=== PATIENT | female | born 1965 | race American Indian/Alaskan Native ===

== ENCOUNTER 2019-01-29 09:39 | Emergency (ER) | payer MEDICAID ==
[2019-01-29 09:49] VITALS: BP 131/84
[2019-01-29] MEDS ORDERED: TORADOL IM ONE (10:28)
--- NOTE | 2019-01-29 10:36 | Emergency Department Report ---
ED Neck Pain/Injury HPI - General Chief Complaint: Neck Pain/Injury Stated Complaint: NECK/LFT SIDE PAIN Time Seen by Provider: 01/29/19 09:57 Mode of arrival: Ambulatory Limitations: No Limitations - History of Present Illness Initial Comments: This is a 53-year-old female nontoxic, well nourished in appearance, no acute signs of distress presents to the ED with c/o of acute on chronic upper back pain. Patient stated has been having these pains intermittently for several years. Patient states that pain radiates through to his left upper extremity. Patient denies any trauma. Denies any bladder or bowel instability. Patient denies any urinary symptoms. Denies any fever, chills, nausea, vomiting, headache, stiff neck, chest pain or shortness of breath. Patient denies any numbness or tingling. Stated allergies to Ibuprofen and Dtap. Stated has received Toradol in [place] ED with no adverse affects. Past medical history includes cervical spine surgery, diabetes and hypertension. MD Complaint: neck pain -: days(s) (2) Place: home Radiation: left upper extremity Severity: mild Severity scale (0 -10): 8 Quality: aching Consistency: constant Improves With: none Worsens With: none Associated Symptoms: none. denies: headache, fever, numbness, tingling, weakness, vertigo, difficulty walking, swollen glands, difficulty swallowing, nausea, vomiting - Related Data Previous Rx's Medication Instructions Recorded Last Taken Type Acetaminophen [Acetaminophen 8 650 mg PO Q8H PRN #30 tablet.er 01/29/19 Unknown Rx Hour] Cyclobenzaprine HCl [Flexeril 5 MG 5 mg PO QHS PRN #10 tab 01/29/19 Unknown Rx TAB] Allergies Allergy/AdvReac Type Severity Reaction Status Date / Time ibuprofen Allergy Seizure Verified 01/29/19 09:47 tetanus and diphtheria Allergy Seizure Verified 01/29/19 09:47 toxoids ED Review of Systems ROS: Stated complaint: NECK/LFT SIDE PAIN Other details as noted in HPI Constitutional: denies: chills, fever Eyes: denies: eye pain, eye discharge, vision change ENT: denies: ear pain, throat pain Respiratory: denies: cough, shortness of breath, wheezing Cardiovascular: denies: chest pain, palpitations Endocrine: no symptoms reported Gastrointestinal: denies: abdominal pain, nausea, diarrhea Genitourinary: denies: urgency, dysuria, discharge Musculoskeletal: denies: back pain, joint swelling, arthralgia Skin: denies: rash, lesions Neurological: denies: headache, weakness, paresthesias Psychiatric: denies: anxiety, depression Hematological/Lymphatic: denies: easy bleeding, easy bruising ED Past Medical Hx - Past Medical History Hx Hypertension: Yes Hx Diabetes: Yes Additional medical history: HIGH CHOLESTROL - Surgical History Past Surgical History?: No - Medications Home Medications: Home Medications Medication Instructions Recorded Confirmed Last Taken Type Acetaminophen [Acetaminophen 8 650 mg PO Q8H PRN #30 tablet.er 01/29/19 Unknown Rx Hour] Cyclobenzaprine HCl [Flexeril 5 MG 5 mg PO QHS PRN #10 tab 01/29/19 Unknown Rx TAB] ED Physical Exam - General Limitations: No Limitations General appearance: alert, in no apparent distress - Head Head exam: Present: atraumatic, normocephalic - Neck Neck exam: Present: normal inspection, full ROM. Absent: tenderness, meningismus, lymphadenopathy - Extremities Exam Extremities exam: Present: normal inspection, full ROM, normal capillary refill. Absent: tenderness, joint swelling - Back Exam Back exam: Present: normal inspection, full ROM, paraspinal tenderness (left sided cervical paraspinal). Absent: tenderness, CVA tenderness (R), CVA tenderness (L), muscle spasm, vertebral tenderness, rash noted - Neurological Exam Neurological exam: Present: alert, oriented X3, normal gait - Psychiatric Psychiatric exam: Present: normal affect, normal mood - Skin Skin exam: Present: warm, dry, intact, normal color. Absent: rash ED Course Vital Signs 01/29/19 09:47 Temperature 98.4 F Pulse Rate 81 Respiratory 18 Rate Blood Pressure 131/84 [Left] O2 Sat by Pulse 100 Oximetry - Reevaluation(s) Reevaluation #1: 01/29/19 10:34 Patient is speaking in full sentences with no signs of distress noted. ED Medical Decision Making - Medical Decision Making This is a 53-year-old male that presents with cervical radiculopathy. Patient is stable was examined by me. There is no spinal tenderness. No bladder or bowel instability. Xrays of cervical spine unremarkable. Patient received Toradol 30 mg IM in the ED which stated that her symptoms has resolved and subsided. Patient is discharged with muscle relaxant and [place]. Patient was instructed not to operate any machinery while taking muscle relaxant as they cause her drowsiness. Patient was referred to Follow-up with a primary care doctor in 3-5 days or if symptoms worsen and continue return to emergency room as soon as possible. At time of discharge, the patient does not seem toxic or ill in appearance. No acute signs of distress noted. Patient agrees to discharge treatment plan of care. No further questions noted by the patient. This chart is dictated with using [employer] Dictation Program - Differential Diagnosis musle strain, fracture, radiculopathy Critical care attestation.: If time is entered above; I have spent that time in minutes in the direct care of this critically ill patient, excluding procedure time. ED Disposition Clinical Impression: Cervical radiculopathy Cervical muscle strain Qualifiers: Encounter type: initial encounter Qualified Code(s): S16.1XXA - Strain of muscle, fascia and tendon at neck level, initial encounter Disposition: TO HOME OR SELFCARE Is pt being admited?: No Does the pt Need Aspirin: No Condition: Stable Instructions: Cyclobenzaprine (By mouth), Muscle Strain (ED) Additional Instructions: Follow-up with your primary care doctor in 3-5 days or if symptoms worsen such as bladder or bowel stability, chest pain, short of breath, numbness or tingling sensation in extremities, headache, dizziness, visual changes, nausea vomiting, or abdominal pain, return back to emergency room as was possible. Take Tylenol and Flexeril as prescribed. Do not operate heavy machinery while taking Flexeril due to sedation Prescriptions: Cyclobenzaprine HCl [Flexeril 5 MG TAB] 5 mg PO QHS PRN #10 tab PRN Reason: Muscle Spasm Acetaminophen [Acetaminophen 8 Hour] 650 mg PO Q8H PRN #30 tablet.er PRN Reason: Pain , Severe (7-10) Referrals: PRIMARY CARE, [Primary Care Provider] - 3-5 Days MCKENNA ALEJANDRO MD [Staff Physician] - 3-5 Days [facility] [Outside] - 3-5 Days [facility] [Outside] - 3-5 Days Forms: Work/School Release Form(ED) Time of Disposition: 11:31
--- NOTE | 2019-01-29 11:28 | XRay Report ---
CERVICAL SPINE 3 VIEWS INDICATION / CLINICAL INFORMATION: neck pain. COMPARISON: None available. FINDINGS: VERTEBRAE: No acute fracture. No significant malalignment. Wire fusion of the C1 and C2 spinous proce sses has been previously performed, but the wires fractured. The odontoid process of C2 appears abnor venu short but with smooth superior border, possibly indicating the presence of an os odontoideum th at is not well seen on the frontal view. On the lateral view, the anterior arch of C1 is not seen in the expected position along the anterior margin of the dens. DISC SPACES / FACET JOINTS:Moderate degenerative disc disease in the mid to lower cervical spine with anterior disc osteophyte complexes but no significant listhesis. Mild disc space narrowing. PARASPINAL SOFT TISSUES:No significant abnormality. IMPRESSION: Abnormal appearance of the atlantoaxial joint with postsurgical changes, although no defi nitely acute abnormality is seen. Further evaluation with noncontrast CT scan is recommended if no pr evious imaging is readily available for comparison. Signer Name: Shawn Meyer MD Signed: 01/29/2019 11:24 AM Workstation Name: [id number]
== END 2019-01-29 12:47 | disposition home or self-care (01) ==
LOC: ED 09:39
DX: S16.1XXA Strain of muscle, fascia and tendon at neck level, initial encounter (principal); M54.12 Radiculopathy, cervical region; I10 Essential (primary) hypertension; E11.9 Type 2 diabetes mellitus without complications; E78.00 Pure hypercholesterolemia, unspecified; Z88.6 Allergy status to analgesic agent; Z88.7 Allergy status to serum and vaccine; X58.XXXA Exposure to other specified factors, initial encounter; Y93.89 Activity, other specified; Y92.89 Other specified places as the place of occurrence of the external cause; Y99.8 Other external cause status
CPT/HCPCS: 72040; 96372; 99283; J1885

== ENCOUNTER 2019-02-04 10:35 | Emergency (ER) | payer MEDICAID ==
[2019-02-04 10:42] VITALS: BP 148/85
--- NOTE | 2019-02-04 11:24 | Emergency Department Report ---
ED General Adult HPI - General Chief complaint: Pain General Stated complaint: NECK AND PAIN DOWN ARM Time Seen by Provider: 02/04/19 11:04 Source: patient Mode of arrival: Ambulatory Limitations: No Limitations - History of Present Illness Initial comments: Patient is a 53-year-old female who presents emergency room with complaints of an adverse medication reaction. She states that she began to take Flexeril for cervical radiculopathy and felt like her heart was racing when she took it. She states that she has continued neck discomfort on the left side. She denies any acute fall or injury. Denies any numbness or weakness. States she has an appointment with her doctor on February 10. - Related Data Previous Rx's Medication Instructions Recorded Last Taken Type Acetaminophen [Acetaminophen 8 650 mg PO Q8H PRN #30 tablet.er 01/29/19 Unknown Rx Hour] Tizanidine HCl [Zanaflex 2mg CAP] 2 mg PO QHS PRN #7 capsule 02/04/19 Unknown Rx Allergies Allergy/AdvReac Type Severity Reaction Status Date / Time ibuprofen Allergy Seizure Verified 01/29/19 09:47 tetanus and diphtheria Allergy Seizure Verified 01/29/19 09:47 toxoids ED Review of Systems ROS: Stated complaint: NECK AND PAIN DOWN ARM Other details as noted in HPI Comment: All other systems reviewed and negative ED Past Medical Hx - Past Medical History Previous Medical History?: Yes Hx Hypertension: Yes Hx Diabetes: Yes Additional medical history: HIGH CHOLESTROL - Surgical History Past Surgical History?: No - Social History Smoking Status: Current Every Day Smoker Substance Use Type: Prescribed - Medications Home Medications: Home Medications Medication Instructions Recorded Confirmed Last Taken Type Acetaminophen [Acetaminophen 8 650 mg PO Q8H PRN #30 tablet.er 01/29/19 Unknown Rx Hour] Tizanidine HCl [Zanaflex 2mg CAP] 2 mg PO QHS PRN #7 capsule 02/04/19 Unknown Rx ED Physical Exam - General Limitations: No Limitations General appearance: alert, in no apparent distress - Head Head exam: Present: atraumatic, normocephalic - Eye Eye exam: Present: normal appearance - ENT ENT exam: Present: mucous membranes moist - Neck Neck exam: Present: full ROM, other (prior midline cervical incision well healed, no midline C-spine or paraspinal TTP, no step offs, no deformities). Absent: tenderness - Respiratory Respiratory exam: Present: normal lung sounds bilaterally. Absent: respiratory distress, wheezes, rales, rhonchi, stridor, chest wall tenderness, accessory muscle use, decreased breath sounds, prolonged expiratory - Cardiovascular Cardiovascular Exam: Present: regular rate, normal rhythm, normal heart sounds. Absent: systolic murmur, diastolic murmur, rubs, gallop - Neurological Exam Neurological exam: Present: alert, oriented X3, CN II-XII intact, normal gait. Absent: motor sensory deficit - Psychiatric Psychiatric exam: Present: normal affect, normal mood - Skin Skin exam: Present: warm, dry, intact ED Course Vital Signs 02/04/19 10:38 Temperature 97.8 F Pulse Rate 97 H Respiratory 18 Rate Blood Pressure 148/85 O2 Sat by Pulse 100 Oximetry ED Medical Decision Making - EKG Data EKG shows normal: sinus rhythm, axis, intervals, QRS complexes, ST-T waves Rate: normal - Medical Decision Making Patient is a 53-year-old female who presents emergency room with complaints of an adverse medication reaction. She states that she began to take Flexeril for cervical radiculopathy and felt like her heart was racing when she took it. She states that she has continued neck discomfort on the left side. She denies any acute fall or injury. Denies any numbness or weakness. States she has an appointment with her doctor on February 10. VSS. EKG WNL with normal HR and rhythm. No midline or paraspinal cervical tenderness to palpation, no step- offs, no deformities, no focal neuro deficits. NEXUS criteria negative. Advised patient to stop taking Flexeril due to her adverse reaction and to begin taking Zanaflex as needed. Discussed the patient the importance of following up with an orthopedic doctor for further evaluation and management. advised pt to please take medication as prescribed as needed. stop taking flexeril and begin taking zanaflex as needed. Do not drive or operate heavy machinery while taking muscle relaxer. May use ice packs, heating pads, rest, epsom salt bath. Follow-up with an orthopedic doctor in the next 2-3 days. Return to the emergency room for any new or worsening symptoms. Critical care attestation.: If time is entered above; I have spent that time in minutes in the direct care of this critically ill patient, excluding procedure time. ED Disposition Clinical Impression: Cervical radiculopathy Disposition: - TO HOME OR SELFCARE Is pt being admited?: No Does the pt Need Aspirin: No Condition: Stable Instructions: Cervical Radiculopathy (ED) Additional Instructions: Please take medication as prescribed as needed. stop taking flexeril and begin taking zanaflex as needed. Do not drive or operate heavy machinery while taking muscle relaxer. May use ice packs, heating pads, rest, epsom salt bath. Follow-up with an orthopedic doctor in the next 2-3 days. Return to the emergency room for any new or worsening symptoms. Prescriptions: Tizanidine HCl [Zanaflex 2mg CAP] 2 mg PO QHS PRN #7 capsule PRN Reason: Muscle Spasm Referrals: [facility] [Provider Group] - 2-3 Days Time of Disposition: 11:22 Print Language: IRAQI
== END 2019-02-04 11:30 | disposition home or self-care (01) ==
LOC: ED 10:35
DX: M54.12 Radiculopathy, cervical region (principal); I10 Essential (primary) hypertension; E11.9 Type 2 diabetes mellitus without complications; E78.00 Pure hypercholesterolemia, unspecified; F17.200 Nicotine dependence, unspecified, uncomplicated; Z79.899 Other long term (current) drug therapy; Z88.8 Allergy status to other drugs, medicaments and biological substances
CPT/HCPCS: 93005; 93010

== ENCOUNTER 2019-12-06 14:37 | Emergency (ER) | payer MEDICAID ==
[2019-12-06 15:42] VITALS: BP 135/83
--- NOTE | 2019-12-06 20:23 | Emergency Department Report ---
Minor Respiratory - HPI Chief Complaint: Upper Respiratory Infection Stated Complaint: COUGH/WEAK Time Seen by Provider: 12/06/19 20:17 Duration: 1 week Minor Respiratory: Yes Cough, No Rhinorrhea, No Sore Throat, No Able to Tolerate Fluids, No Ear Pain, No Sick Contacts, No Hemoptysis, No Chest Pain, No Shortness of Breath, No Fever Other History: 54-year-old -[place] female presents to the emergency room complaining of coughing x1 week. Patient reports cough drops makes it better nothing makes it worse. Patient states that the coughing is intermittent. She reports she has not taken anything [id number] as she has no money. Patient reports a past medical history of diabetes and hypertension. She denies any fever chills no nausea no vomiting no chest pain. ED Review of Systems ROS: Stated complaint: COUGH/WEAK Other details as noted in HPI Comment: All other systems reviewed and negative Respiratory: cough. denies: shortness of breath, SOB with exertion, SOB at rest, wheezing Cardiovascular: denies: chest pain, edema ED Past Medical Hx - Past Medical History Hx Hypertension: Yes Hx Diabetes: Yes Additional medical history: HIGH CHOLESTROL - Social History Smoking Status: Current Some Day Smoker - Medications Home Medications: Home Medications Medication Instructions Recorded Confirmed Last Taken Type Acetaminophen [Acetaminophen 8 650 mg PO Q8H PRN #30 tablet.er 01/29/19 Unknown Rx Hour] Tizanidine HCl [Zanaflex 2mg CAP] 2 mg PO QHS PRN #7 capsule 02/04/19 Unknown Rx Amoxicillin [Amoxicillin TAB] 875 mg PO BID #14 tablet 09/21/19 Unknown Rx Naproxen [Naprosyn] 500 mg PO BID #14 tablet 09/21/19 Unknown Rx guaiFENesin [Robitussin] 5 ml PO TID PRN #100 ml 09/21/19 Unknown Rx guaiFENesin [Robitussin] 100 mg PO Q8H PRN #100 ml 12/06/19 Unknown Rx Minor Respiratory Exam - Exam General: Vital signs noted. No distress. Alert and acting appropriately. HEENT: Yes Moist Mucous Membranes, No Pharyngeal Erythema, No Pharyngeal Exudates, No Rhinorrhea, No Conjuctival Injection, No Frontal Tenderness, No Maxillary Tenderness Neck: Yes Supple, No Adenopathy Lungs: Yes Good Air Exchange, No Wheezes, No Ron[place], No Stridor, No Cough, No Labored Respirations, No Retractions, No Use of Accessory Muscles, No Other Abnormal Lung Sounds Heart: Yes Regular, No Murmur Abdomen: Yes Normal Bowel Sounds, No Tenderness, No Peritoneal Signs Skin: No Rash, No Edema Neurologic: Alert and oriented, no deficits. Musculoskeletal: Unremarkable. ED Course Vital Signs 12/06/19 15:40 Temperature 98.3 F Pulse Rate 92 H Respiratory 18 Rate Blood Pressure 135/83 O2 Sat by Pulse 99 Oximetry ED Medical Decision Making - Medical Decision Making 54-year-old -[place] female presents to the emergency room complaining of coughing x1 week. Patient reports cough drops makes it better nothing makes it worse. Patient states that the coughing is intermittent. She reports she has not taken anything [id number] as she has no money. Patient reports a past medical history of diabetes and hypertension. She denies any fever chills no nausea no vomiting no chest pain. Recommend patient to take [id number] Robitussin DM for cough. Critical care attestation.: If time is entered above; I have spent that time in minutes in the direct care of this critically ill patient, excluding procedure time. ED Disposition Clinical Impression: Cough in adult patient Disposition: DC-01 TO HOME OR SELFCARE Is pt being admited?: No Does the pt Need Aspirin: No Condition: Stable Instructions: Guaifenesin (By mouth) Additional Instructions: Recommend taking [id number] guaifenesin/Robitussin Prescriptions: guaiFENesin [Robitussin] 100 mg PO Q8H PRN #100 ml PRN Reason: Cough Referrals: PRIMARY CARE, [Primary Care Provider] - 3-5 Days
== END 2019-12-06 20:30 | disposition home or self-care (01) ==
LOC: ED 14:37
DX: R05 Cough (principal); I10 Essential (primary) hypertension; E11.9 Type 2 diabetes mellitus without complications; F17.200 Nicotine dependence, unspecified, uncomplicated; Z79.899 Other long term (current) drug therapy
CPT/HCPCS: 99282